=== PATIENT | male | born 1995 | race Caucasian/White ===

== ENCOUNTER 2021-04-18 00:50 | Emergency (ER) | payer MEDICAID ==
[~2021-04-18] VITALS: Ht 170.2 cm; Wt 109.0 kg
[2021-04-18 00:54] VITALS: BP 163/112
[2021-04-18] MEDS ORDERED: IBUPROFEN 400MG TABLET PO ONE (01:15)
== END 2021-04-18 01:29 | disposition home or self-care (01) ==
LOC: ER 00:50
DX: U07.1 COVID-19 (principal); E78.00 Pure hypercholesterolemia, unspecified
CPT/HCPCS: 99283; C9803; U0003; U0005